=== PATIENT | female | born 1950 | race Hispanic/Latino ===

== ENCOUNTER → 2018-06-20 | Outpatient (CLI) | payer MEDICARE ==
--- NOTE | 2018-06-20 16:22 | Diagnostic Imaging Report ---
Exam: Left knee radiographs - 3 views History: Left knee pain. Comparison: None. Findings: No evidence of acute fracture, malalignment, or soft tissue abnormality. There are mild tricompartmental degenerative changes with joint space narrowing. Mild deformity of the proximal fibula may reflect sequela of prior trauma. Impression: No acute osseous abnormality. Mild left knee osteoarthritis. Signed by: Dr. Aydee Mejia MD on 06/20/2018 4:19 PM
== END ==
LOC: RAD 15:34
PROVIDERS: ATTEND Family Medicine
DX: M25.562 Pain in left knee (principal)

== ENCOUNTER → 2021-08-26 | Outpatient (CLI) | payer MEDICARE | LOC: RAD 09:47 | PROVIDERS: ATTEND Family Medicine | DX: M54.50 Low back pain, unspecified (principal) | CPT/HCPCS: 72110 ==

== ENCOUNTER → 2022-06-13 | Outpatient (CLI) | payer MEDICARE | LOC: RAD 12:25 | PROVIDERS: ATTEND Family Medicine | DX: M54.50 Low back pain, unspecified (principal); M19.011 Primary osteoarthritis, right shoulder; G89.29 Other chronic pain | CPT/HCPCS: 72110 ==